=== PATIENT | female | born 1970 | race Caucasian/White ===

== ENCOUNTER 2022-02-10 18:06 | Emergency (ER) | payer MEDICAID ==
[~2022-02-10] VITALS: Ht 154.9 cm; Wt 68.0 kg
[2022-02-10] MEDS ORDERED: KETOROLAC 60MG/2ML VIAL IM ONE (18:45)
[2022-02-10] MEDS ORDERED: METH-773 MT (21:17)
[2022-02-10] MEDS ORDERED: IBUP-2029 MT (21:17)
[2022-02-10 21:30] VITALS: BP 122/83
== END 2022-02-10 21:30 | disposition home or self-care (01) ==
LOC: ER 18:06
DX: M54.2 Cervicalgia (principal); M54.50 Low back pain, unspecified; M79.662 Pain in left lower leg; M79.661 Pain in right lower leg; V43.52XA Car driver injured in collision with other type car in traffic accident, initial encounter; Y93.89 Activity, other specified; Y92.488 Other paved roadways as the place of occurrence of the external cause
CPT/HCPCS: 72100; 72125; 73590; 96372; 99284; J1885